=== PATIENT | female | born 1970 | race Two or more races ===

== ENCOUNTER 2018-04-09 01:31 | Emergency (ER) | payer OTHER ==
[2018-04-09] MEDS ORDERED: ASPIRIN 81 MG TABLET, CHEWABLE PO ONE (01:43)
[2018-04-09] MEDS ORDERED: LIDOCAINE 2% VISCOUS SOLN 20 ML UDCUP PO ONE (05:00)
[2018-04-09] MEDS ORDERED: METOCLOPRAMIDE HCL ORAL SOLN 10 MG/10 ML UDCUP PO ONE (05:00)
[2018-04-09] MEDS ORDERED: MAG HYDROX/AL HYDROX/SIMETH SUSP 30 ML UDCUP PO ONE (05:00)
[2018-04-09 05:01] LABS: ABSOLUTE EOSINOPHILS # (AUTO) 0.3 10^3/uL (0.0-0.6); ABSOLUTE LYMPHOCYTES (AUTO) 3.2 10^3/uL (0.5-4.7); ABSOLUTE MONOCYTES (AUTO) 0.7 10^3/uL (0.1-1.4); ABSOLUTE NEUT (AUTO) 7.7 10^3/uL (1.7-8.2); BASOPHILS % (AUTO) 0.3 % (0-2); EOSINOPHILS % (AUTO) 2.1 % (0-6); HEMATOCRIT 28.6 % (36.0-47.0); HEMOGLOBIN 8.5 g/dL (12.0-15.5); MEAN CORPUSCULAR HEMOGLOBIN 17.3 pg (27.0-33.4); MEAN CORPUSCULAR HGB CONC 29.8 g/dL (32.0-36.0); MEAN CORPUSCULAR VOLUME 58 fl (80-97); MONOCYTES % (AUTO) 5.8 % (3-13); PLATELET COUNT 406 10^3/uL (150-450); RED BLOOD COUNT 4.93 10^6/uL (3.72-5.28); RED CELL DISTRIBUTION WIDTH 18.9 % (11.5-14.0); SEGMENTED NEUTROPHILS % (AUTO) 64.8 % (42-78); TOTAL CELLS COUNTED % (AUTO) 100 %
--- NOTE | 2018-04-09 05:02 | ER Document Report ---
ED Medical Screen (RME) - General Chief Complaint: Chest Pain Stated Complaint: CHEST PAIN Time Seen by Provider: 04/09/18 04:32 Notes: 47-year-old female with chief complaint of chest pain, throat pain, feeling the need to clear her throat. States she has had this a long time, usually at night , today at midnight it was worse than usual so she came in. Denies vomiting, fever, cough. Reports discomfort with deep breath. Takes ranitidine at home for these symptoms and states that it usually helps but did not today. Denies smoking, alcohol, recreational drugs. TRAVEL OUTSIDE OF THE [place] IN LAST 30 DAYS: No Physical Exam - Vital signs Vitals: Temp Pulse Resp BP Pulse Ox 98.1 F 89 22 H 143/71 H 100 04/09/18 02:00 04/09/18 02:00 04/09/18 02:00 04/09/18 02:00 04/09/18 02:00 - General General appearance: Appears well In distress: None - Patient is constantly clearing her throat but she is not in distress - Cardiovascular Rhythm: Regular, Extrasystoles. No: Tachycardia Heart sounds: Normal auscultation, S1 appreciated, S2 appreciated - Abdominal Tenderness: Nontender. No: Tender Course - Re-evaluation Re-evalutation: Extrasystoles that look like PACs on the monitor but symptoms do sound like GI. Given GI cocktail along with chest pain workup and checking magnesium to start with. I have greeted and performed a rapid initial assessment of this patient. A comprehensive ED assessment and evaluation of the patient, analysis of test results and completion of the medical decision making process will be conducted by additional ED providers. - Vital Signs Vital signs: Temp Pulse Resp BP Pulse Ox 98.1 F 89 22 H 143/71 H 100 04/09/18 02:00 04/09/18 02:00 04/09/18 02:00 04/09/18 02:00 04/09/18 02:00 - Laboratory Result Diagrams: 04/09/18 04:39 04/09/18 04:39 Doctor's Discharge - Discharge Referrals: BISHNU MITCHELL MD [Primary Care Provider] - Follow up as needed
[2018-04-09 05:05] LABS: ALANINE AMINOTRANSFERASE 26 U/L (9-52); ALBUMIN 4.3 g/dL (3.5-5.0); ALKALINE PHOSPHATASE 87 U/L (38-126); ANION GAP 12 (5-19); ASPARTATE AMINO TRANSFERASE 24 U/L (14-36); BILIRUBIN,DIRECT 0.2 mg/dL (0.0-0.4); BILIRUBIN,TOTAL 0.4 mg/dL (0.2-1.3); BLOOD UREA NITROGEN 14 mg/dL (7-20); CALCIUM 9.5 mg/dL (8.4-10.2); CARBON DIOXIDE 24 mmol/L (22-30); CHLORIDE 104 mmol/L (98-107); CREATINE KINASE 59 U/L (30-135); GLUCOSE 125 mg/dL (75-110); POTASSIUM 4.3 mmol/L (3.6-5.0); SODIUM 140.4 mmol/L (137-145); TOTAL PROTEIN 8.1 g/dL (6.3-8.2)
--- NOTE | 2018-04-09 05:12 | RADIOLOGY REPORT (SQ) ---
EXAM DESCRIPTION: XR CHEST 1 VIEW COMPLETED DATE/TIME: 04/09/2018 01:44 CLINICAL HISTORY: 47 years, Female, SOB/ CP COMPARISON: None. TECHNIQUE: Single portable view of the chest FINDINGS: The lungs are well expanded and are clear. There is no evidence of a pneumothorax. The cardiac silhouette is normal in size and configuration. The mediastinal contours are normal. No acute osseous abnormality is identified. No focal soft tissue abnormalities are seen. IMPRESSION: No evidence of acute intrathoracic disease.
[2018-04-09 05:17] LABS: CREATINE KINASE MB 0.93 ng/mL (<4.55)
[2018-04-09 05:23] LABS: HYPOCHROMASIA 2+; POIKILOCYTOSIS 1+; POLYCHROMASIA SLIGHT; SCHISTOCYTES SLIGHT
[2018-04-09 05:24] LABS: OVALOCYTES SLIGHT; PLATELET COMMENT ADEQUATE; TEAR DROP CELLS SLIGHT
[2018-04-09 05:30] LABS: TROPONIN I < 0.012 ng/mL
--- NOTE | 2018-04-09 07:35 | EKG REPORT ---
SEVERITY:- ABNORMAL ECG - SINUS RHYTHM MULTIPLE ATRIAL PREMATURE COMPLEXES : Confirmed by: Melquiades Aviles MD 09-Apr-2018 07:35:22
--- NOTE | 2018-04-09 07:37 | EKG REPORT ---
SEVERITY:- BORDERLINE ECG - SINUS WITH MULTIPLE PACS : Confirmed by: Melquiades Aviles MD 09-Apr-2018 07:36:26
--- NOTE | 2018-04-09 08:10 | ER Document Report ---
ED General - General Chief Complaint: Chest Pain Stated Complaint: CHEST PAIN Time Seen by Provider: 04/09/18 04:32 Notes: 47-year-old female presents to the ER complaining of epigastric pain rating up into her throat. Patient has had a problem with bad acid reflux in the past. She takes an [id number] for this. But it has not been helping. Patient describes burning and aching that is worse at night when she is laying down the starts in her epigastrium and radiates up into her chest and throat and she can have a bitter taste in her mouth. Patient denies any fever chills or cough. Denies extremity numbness tingling or weakness denies headache or blurred vision denies calf pain or swelling denies black bloody or tarry stools she does state that she does have very long heavy periods 6-7 days bleeding heavily. She is currently on her cycle. She denies any lower abdominal pain. Denies back pain. TRAVEL OUTSIDE OF THE [place] IN LAST 30 DAYS: No Past Medical History - Social History Smoking Status: Never Smoker Family History: Reviewed & Not Pertinent Patient has suicidal ideation: No Patient has homicidal ideation: No Renal/ Medical History: Denies: Hx Peritoneal Dialysis Past Surgical History: Reports: Hx Hysterectomy Review of Systems - Review of Systems Constitutional: denies: Chills, Diaphoresis, Fever, Malaise EENT: denies: Blurred vision Cardiovascular: Chest pain. denies: Dyspnea Respiratory: denies: Short of breath Gastrointestinal: Abdominal pain. denies: Nausea, Vomiting, Constipation, Blood in vomit, Black stools, Rectal bleeding Genitourinary: denies: Burning, Dysuria Female Genitourinary: Heavy/abnormal periods, Irregular period, Vaginal bleeding Skin: denies: Rash Neurological/Psychological: denies: Anxiety, Headaches, Numbness -: Yes All other systems reviewed and negative Physical Exam - Vital signs Vitals: Temp Pulse Resp BP Pulse Ox 98.1 F 89 22 H 143/71 H 100 04/09/18 02:00 04/09/18 02:00 04/09/18 02:00 04/09/18 02:00 04/09/18 02:00 - Notes Notes: GENERAL_APPEARANCE: well_nourished, alert, cooperative, no_acute_distress, no_ obvious_discomfort. VITALS: reviewed, see vital signs table. HEAD: no_swelling tenderness on the head. EYES: PERRL, EOMI, conjunctiva_clear. NOSE: no_nasal_discharge. MOUTH: (-)decreased moisture. THROAT: no_throat_inflammation, no_airway_obstruction. no_lymphadenopathy NECK: supple, no_neck_tenderness, (-)thyromegaly. BACK: no_back_tenderness. CHEST_WALL: no_chest_tenderness. LUNGS: no_wheezing, no_rales, no_rhonchi, (-)accessory muscle use, good air exchange bilateral. HEART: normal_rate, normal_rhythm, normal_S1, normal_S2, (-)S3, (-)S4, no_ murmur, no_rub. ABDOMEN: normal_BS, soft, epigastric_abd_tenderness, (-)guarding, (-)rebound, no_organomegaly, no_abd_masses. EXTREMITIES: good pulses in all_extremities, no_swelling\tenderness in the extremities, no_edema. SKIN: warm, dry, good_color, no_rash. MENTAL_STATUS: speech_clear, oriented_X_3, normal_affect, responds_ appropriately to questions. NEURO: Neg Motor or Sensory Deficits on exam, CN 2-12 intact, DTR 2+ symmetric x 4, No cerbellar signs Course - Re-evaluation Re-evalutation: 04/09/18 08:06 Patient arrives with symptoms of acid reflux. EKG showed a sinus rhythm with multiple PACs. Rhythm strips were done an EKG was done there is no sustained A. fib or a flutter. However the patient does have multiple PACs this may likely just be congenital and she has a soft and. She is has never been investigated for this before. Epigastric discomfort labs are within acceptable limits abdomen is soft and supple there is some mild epigastric discomfort but no rebound or guarding lungs are clear and equal cardiovascular rate and rhythm 04/09/18 08:07 Patient has done well here she feels both GI cocktail place her on Nexium and Carafate. I will refer her to gastroenterology for her stomach. My suspicion is low for ACS I will however send her to cardiology just to be investigated for this irregular heartbeat. - Vital Signs Vital signs: Temp Pulse Resp BP Pulse Ox 98.1 F 89 22 H 143/71 H 98 04/09/18 02:00 04/09/18 02:00 04/09/18 02:00 04/09/18 02:00 04/09/18 04:28 - Laboratory Result Diagrams: 04/09/18 04:39 04/09/18 04:39 Laboratory results interpreted by me: 04/09/18 04/09/18 04:39 04:39 WBC 12.0 H Hgb 8.5 L Hct 28.6 L MCV 58 L MCH 17.3 L MCHC 29.8 L RDW 18.9 H Glucose 125 H - Diagnostic Test Radiology reviewed: Image reviewed Radiology results interpreted by me: 04/09/18 08:07 Chest X-Ray 04/09/18 01:44 IMPRESSION: No evidence of acute intrathoracic disease. - EKG Interpretation by Me EKG shows normal: Sinus rhythm Rate: Normal Rhythm: NSR When compared to previous EKG there are: Previous EKG unavailable Additional EKG results interpreted by me: 04/09/18 08:08 Multiple PACs Discharge - Discharge Clinical Impression: Irregular heartbeat Gastritis Qualifiers: Gastritis type: unspecified gastritis Chronicity: acute Gastritis bleeding: without bleeding Qualified Code(s): K29.00 - Acute gastritis without bleeding Condition: Good Disposition: HOME, SELF-CARE Instructions: Prilosec (Acid Pump Inhibitor) ([facility]), Reflux Disease (GERD) ([facility]) Additional Instructions: Please see Dr. Orlando cardiology for a very mild irregular heartbeat. This was observed for you were here however this is likely nonsignificant. It is good to have this investigated in case it worsens in the future. His follow-up with Dr. Huynh gastroneurology for her stomach. If you do not improve in 48-72 hours return to the ER to be reevaluated. Prescriptions: Pantoprazole Sodium [Protonix] 40 mg PO DAILY #30 tablet. Sucralfate [Carafate 1 gm Tablet] 1 gm PO ACHS #30 tablet Referrals: WHITNEY ORLANDO MD [ACTIVE STAFF] - Follow up as needed TEDDY HUYNH MD [ACTIVE STAFF] - Follow up as needed
[2018-04-09 09:08] VITALS: BP 119/67
[2018-04-09 12:36] LABS: PATH REVIEW PATHOLOGIST REVIEWED
== END 2018-04-09 09:08 | disposition home or self-care (01) ==
LOC: ER 01:31
DX: I49.9 Cardiac arrhythmia, unspecified (principal); K29.00 Acute gastritis without bleeding
CPT/HCPCS: 93005; 99285; 36415; 82553; 82550; 83735; 85025; 80053; 84484; 71045; 93010; J3490

== ENCOUNTER 2018-04-30 08:34 | Day surgery (SDC) | payer OTHER ==
[2018-04-30] MEDS ORDERED: FLUMAZENIL INJ 0.5 MG/5 ML VIAL ONE (09:07)
[2018-04-30] MEDS ORDERED: GLUCAGON,HUMAN RECOMB 1 MG INJ ONE (09:07)
[2018-04-30] MEDS ORDERED: ONDANSETRON HCL INJ/PF 4 MG/2 ML SDV ONE (09:07)
[2018-04-30] MEDS ORDERED: NALOXONE HCL INJ/PF 0.4 MG/1 ML SDV ONE (09:07)
[2018-04-30] MEDS ORDERED: EPINEPHRINE INJ 1 MG/10 ML DISP.SYRIN ONE (09:07)
[2018-04-30] MEDS ORDERED: DIPHENHYDRAMINE HCL 50 MG/ML VIAL ONE (09:07)
[2018-04-30] MEDS: MIDAZOLAM 2 MG/2 ML INJ ONE ×3 (09:21→09:26)
[2018-04-30] MEDS: FENTANYL CITRATE INJ/PF 100 MCG/2 ML AMPUL ONE ×2 (09:22→09:25)
--- NOTE | 2018-04-30 09:36 | Operative Report ---
Operative Report DATE OF SURGERY: 04/30/18 Operative Report: The risks benefits and alternatives of the procedure explained to the patient in detail and informed consent is obtained.A GIF Olympus video scope was inserted into the patient's mouth and hypopharynx, the esophagus is identified intubated and insufflated ,the scope was then advanced through the esophagus stomach and duodenum, retroflexion maneuver is done, the esophagus stomach and first and second portions of the duodenum examined PREOPERATIVE DIAGNOSIS: Dysphagia POSTOPERATIVE DIAGNOSIS: Hiatal hernia. Schatzki's ring status post breakage. Gastritis status post biopsy rule out Helicobacter pylori OPERATION: EGD with biopsy SURGEON: TEDDY MORALES ANESTHESIA: Moderate Sedation - 4 mg of Versed, 100 mcg of fentanyl. Conscious sedation monitoring time 30 minutes. TISSUE REMOVED OR ALTERED: As noted above. COMPLICATIONS: None. ESTIMATED BLOOD LOSS: None. INTRAOPERATIVE FINDINGS: As noted above. PROCEDURE: Patient tolerated the procedure well. No immediate postprocedure complications are noted. Patient discharged in good condition. Discharge date 04/30/2018. Discharge diet: Regular. Discharge activity: Regular. 2-3-week follow-up to discuss findings. Patient is instructed call the office or proceed to the emergency room should there be any further problems or questions. Wait on the pathology.
[2018-04-30 10:42] VITALS: BP 109/53
== END 2018-04-30 10:52 | disposition home or self-care (01) ==
LOC: END 08:34
PROVIDERS: ATTEND Internal Medicine Gastroenterology
DX: K44.9 Diaphragmatic hernia without obstruction or gangrene (principal); K22.2 Esophageal obstruction; K29.50 Unspecified chronic gastritis without bleeding; Z80.0 Family history of malignant neoplasm of digestive organs; M79.7 Fibromyalgia
CPT/HCPCS: 43239; 88342 ×2; 88305 ×2; J2250; J3010; J0171; J1200; J1610; J2310; J2405; J3490

== ENCOUNTER 2019-10-04 08:54 | Emergency (ER) | payer OTHER ==
[2019-10-04 09:00] VITALS: BP 149/71
--- NOTE | 2019-10-04 09:46 | ER Document Report ---
HPI - HPI Time Seen by Provider: 10/04/19 09:05 Pain Level: 0 Context: Patient is a 48-year-old female presents emergency department with a chief complaint of a bleeding varicose vein. Patient reports Saturday afternoon which was 2 days ago she was shaving her legs when she cut a varicose vein. Patient reports at that time there was a lot of bleeding. Patient reports she applied Vaseline to the area and a compression dressing which she attempted to move this morning. Patient reports that she attempted to remove it this morning she removed a blood clot causing it to bleed significantly. Patient states that the bleeding has subsided since then. Patient denies use of blood thinners or diabetes. - CONSTITUTIONAL Constitutional: DENIES: Fever, Chills - REPRODUCTIVE Reproductive: DENIES: : Past Medical History - General Information source: Patient - Social History Smoking Status: Never Smoker Chew tobacco use (# tins/day): No Frequency of alcohol use: None Drug Abuse: None Lives with: Family Family History: Reviewed & Not Pertinent Patient has suicidal ideation: No Patient has homicidal ideation: No - Past Medical History Cardiac Medical History: Reports: None Denies: Hx Coronary Artery Disease, Hx Heart Attack, Hx Hypertension Pulmonary Medical History: Reports: None Denies: Hx Asthma, Hx Bronchitis, Hx COPD, Hx Pneumonia EENT Medical History: Reports: None Neurological Medical History: Reports: None. Denies: Hx Cerebrovascular Accident, Hx Seizures Endocrine Medical History: Reports: None Renal/ Medical History: Reports: None. Denies: Hx Peritoneal Dialysis Malignancy Medical History: Reports: None GI Medical History: Reports: None Musculoskeletal Medical History: Reports Hx Arthritis Skin Medical History: Reports None Psychiatric Medical History: Reports: None Traumatic Medical History: Reports: None Infectious Medical History: Reports: None Surgical Hx: Negative Past Surgical History: Denies: Hx Hysterectomy - Immunizations Hx Diphtheria, Pertussis, Tetanus Vaccination: No Vertical Provider Document - CONSTITUTIONAL Agree With Documented VS: Yes Exam Limitations: No Limitations General Appearance: No Apparent Distress - INFECTION CONTROL TRAVEL OUTSIDE OF THE [place] IN LAST 30 DAYS: No - HEENT HEENT: Atraumatic, Normocephalic, PERRLA - NECK Neck: Normal Inspection - RESPIRATORY Respiratory: Breath Sounds Normal, No Respiratory Distress - CARDIOVASCULAR Cardiovascular: Regular Rate, Regular Rhythm - GI/ABDOMEN Gastrointestinal: Abdomen Soft, Abdomen Non-Tender, Normal Bowel Sounds - MUSCULOSKELETAL/EXTREMETIES Musculoskeletal/Extremeties: FROM - NEURO Level of Consciousness: Awake, Alert, Appropriate - DERM Integumentary: Warm, Dry, No Rash Adult Front & Back Diagram: 1 - Pinhole sized puncture site over varicose vein, no active bleeding, no surrounding ecchymosis or edema. Course - Re-evaluation Re-evalutation: 10/04/19 09:44 Dermabond was placed to the pinhole sized open area over the varicose vein. Prior to administration there was no active bleeding. Patient tolerated well. Will apply a nonstick dressing. I did discuss with the patient and significant other to not apply bacitracin or Neosporin to the area as this can dissolve the glue. Glue will dissolve on its own. - Vital Signs Vital signs: Temp Pulse Resp BP Pulse Ox 97.9 F 90 18 149/71 H 96 10/04/19 08:58 10/04/19 08:58 10/04/19 08:58 10/04/19 08:58 10/04/19 08:58 Discharge - Discharge Clinical Impression: Bleeding from varicose vein, Bleeding from varicose veins of right lower extremity Condition: Stable Disposition: HOME, SELF-CARE Additional Instructions: *Today was seen in the emergency department for a bleeding varicose vein. At the time of administration of the glue you are not actively bleeding. We have applied a nonstick dressing. Please keep the wound clean and dry. Do not soak or scrub the wound. Do not swim. You can shower briefly for 24 hours, gently dry and blot the area. Do not apply ointments as this can dissolve the glue. Please return if there is any increasing pain, swelling, redness, drainage. Dermabond (Skin Adhesive Closure) Skin adhesive (such as Dermabond) is a quick-drying glue that remains slightly flexible while it holds wound edges together. It can substitute for stitches on some cuts. The film will usually fall off the skin after 5 to 10 days. Keep the wound area clean and dry. Do not soak or scrub the wound. Don't swim. You can shower briefly after 24 hours. Gently blot the area dry with a soft towel. Don't apply ointments. If there is a dressing, change it immediately if it gets wet. Do not place tape directly over the adhesive film, because the tape may pull the film off your skin as you remove it. Don't bump the wound area. If there's risk of injury, keep the area well- padded. Avoid stretching of the skin. Do not scratch or pick at the adhesive film. Avoid prolonged exposure to sunlight or tanning lamps. Return if there is increasing pain, swelling, redness, or drainage, or if the wound edges seem to open or separate.
== END 2019-10-04 10:00 | disposition home or self-care (01) ==
LOC: ER 08:54
PROC: 0HQKXZZ Repair Right Lower Leg Skin, External Approach (ICD-10-PCS; principal; 2019-10-04)
DX: I83.891 Varicose veins of right lower extremity with other complications (principal)
CPT/HCPCS: 12001; G0168; 99282